=== PATIENT | female | born 1985 | race Caucasian/White ===

== ENCOUNTER 2018-11-30 11:19 | Emergency (ER) | payer OTHER ==
[~2018-11-30] VITALS: Ht 154.9 cm; Wt 61.2 kg
--- OUTSIDE RECORDS SUMMARY | 2018-11-30 11:21 | XMS REPORT | Clinical Summary ---
Author Author [facility] Address Unknown Phone Unavailable Care Team Providers Care Junior Paralegal Name Role Phone Asked, No Pcp PCP Unavailable Allergies Comments Active Allergy Reactions Severity Noted Date Latex Hives 09/30/2018 Sulfa (Sulfonamide Hives 09/30/2018 Antibiotics) Medications End Date Status Medication Sig Dispensed Refills Start Date 09/30/2019 Active NUVARING 0.12-0.015 mg/24 Insert 3 each 4 hr vaginal ring vaginally and [address] for 3 consecutive weeks, then remove for 1 week. 09/30/2018 Discontinued NUVARING 0.12-0.015 mg/24 Insert 3 each 0 hr vaginal ring vaginally and [address] for 3 consecutive weeks, then remove for 1 week. Active Problems No known active problems Encounters Care Team Description Date Type Specialty Tiffany Phillips MD Cervical smear, as part of routine gynecological examination (Primary Dx) 09/30/2018 Office Visit Obstetrics and Gynecology Shanta Mead MA Stress incontinence (Primary Dx) 09/30/2018 Orders Only Obstetrics and Gynecology Shanta Mead MA 09/30/2018 Orders Only Obstetrics and Gynecology Tiffany Phillips MD 08/05/2018 Telephone Obstetrics and Gynecology after 11/29/2017 Family History Medical History Relation Name Comments Hypertension Father Hypertension Mother Relation Name Status Comments Father Mother Social History Date Tobacco Use Types Packs/Day Years Used Never Smoker Smokeless Tobacco: Never Used Alcohol Use Drinks/Week oz/Week Comments Yes social Sex Assigned at Date Recorded Not on file Industry Job Start Date Occupation Not on file Not on file Not on file Travel End Travel History Travel Start No recent travel history available. Last Filed Vital Signs Time Taken Vital Sign Reading 09/30/2018 1:52 PM [employer] Blood Pressure 123/78 09/30/2018 1:52 PM [employer] Pulse 80 - Temperature - - Respiratory Rate - - Oxygen Saturation - - Inhaled Oxygen - Concentration 09/30/2018 1:52 PM [employer] TRA[employer] Weight 62.1 kg (137 lb) 09/30/2018 1:52 PM [employer] TRA[employer] Height 157.5 cm (5' 2") 09/30/2018 1:52 PM [employer] Body Mass Index 25.06 Plan of Treatment Health Maintenance Due Date Last Done Comments CERVICAL CANCER SCREENING 02/10/2004 INFLUENZA VACCINE 04/07/2018 Procedures Comments Procedure Name Priority Date/Time Associated Diagnosis THINPREP TIS PAP RFX HPV Routine 09/30/2018 Cervical smear, as part 2:18 PM [employer] CONSULTANT of routine gynecological examination after 11/29/2017 Results * THINPREP TIS PAP RFX HPV (09/30/2018 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 pap: NONE GIVEN [facility] [place] Prev. bx: NONE GIVEN [facility] [place] Source None given [facility] [place] Statement of adequacy Comment: [facility] Satisfactory for evaluation. [place] Endocervical/transformation zone component present. Age and/or menstrual status not provided Interpretation/result: Comment: Negative for [facility] intraepithelial lesion or [place] malignancy. Comment Comment: [facility] This Pap test has been [place] evaluated with computer assisted technology. 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 It is not a diagnostic test and is subject to false negative and false positive results. It is most reliable when a satisfactory sample, regularly obtained, is submitted with relevant clinical findings and history, and when the Pap result is evaluated along with historic and current clinical information. Specimen Cervical Resulting Agency Comment Performing Organization Information: Site ID: [id number] Name: [facility] Address: [address] [place] [id number] Director: Rosibel Mosley Performing Organization Address City/State/Zipcode Phone Number [place] [facility] [address] [id number] after 11/29/2017 Insurance Payer Benefit Subscriber ID Type Phone Address Plan / Group CIG[employer] CIGNA OPEN xxxxxxxxxxx HMO ACCESS/NET WORK Advance Directives Patient has advance care planning documents on file. For more information, francia ivan contact: Chucho Welch [address] [place] [address]
== END 2018-11-30 11:45 | disposition home or self-care (01) ==
LOC: FSED 11:19
DX: M54.2 Cervicalgia (principal); M54.6 Pain in thoracic spine; S16.1XXA Strain of muscle, fascia and tendon at neck level, initial encounter; X50.0XXA Overexertion from strenuous movement or load, initial encounter; Y99.0 Civilian activity done for income or pay
CPT/HCPCS: 99282